=== PATIENT | male | born 1970 | race Caucasian/White ===

== ENCOUNTER → 2017-02-02 | Outpatient (CLI) | payer BC ==
[~2017-02-02] MED LIST: OPTIRAY 320 IV PRN
--- NOTE | 2017-02-02 16:39 | DIAGNOSTIC IMAGING REPORT ---
CT OF THE ABDOMEN AND PELVIS WITH CONTRAST CLINICAL HISTORY: Upper abdominal pain. COMPARISON STUDY: None. TECHNIQUE: Following IV administration of 120 mL of Optiray-[id number], axial images of the abdomen and pelvis were obtained from the lung bases to the proximal femurs. Images were reviewed in the axial, sagittal, and coronal planes. IV contrast was administered without complication. Oral contrast was administered. CT DOSE: 1077.42 mGycm FINDINGS: No pneumatosis, free air or portal venous gas is present. The liver, spleen, adrenal glands, kidneys and pancreas are normal. There is no biliary or pancreatic ductal dilatation. There is no peripancreatic or pericholecystic infiltration. There is no hydronephrosis. No enlarged abdominal or pelvic lymph nodes are present. There is a small fat-containing umbilical hernia. There is no evidence for a bowel obstruction. The appendix is normal. There is colonic diverticulosis without evidence for acute diverticulitis. No suspicious skeletal lesion is evident. IMPRESSION: No acute process within the abdomen or pelvis. Electronically signed by: Shay Childers M.D. 02/02/2017 4:37 PM Dictated Date/Time: 02/02/2017 4:32 PM
== END | disposition home or self-care (01) ==
LOC: C.CTS 16:14
PROVIDERS: ATTEND Physician Assistant
DX: R10.33 Periumbilical pain (principal)